=== PATIENT | male | born 2000 | race Caucasian/White ===

== ENCOUNTER 2025-10-13 09:35 | Emergency (ER) | payer OTHER, SELFPAY ==
[2025-10-13 09:39] VITALS: BP 124/84; PULSE 98; TEMP 36.5; O2SAT 95; BMI 31.7
--- NOTE | 2025-10-13 09:49 | XR_ITS ---
[facility] [place] [id number] Patient Name: DELLA CASTRO MRN: [id number] date: 2000 Sex: M Assigned Patient Location: ER Current Patient Location: ED.MAIN Accession/Order Number: [id number] Exam Date: 10/13/2025 10:10 Report Date: 10/13/2025 10:41 At the request of: JOSE JOHNSON DO Procedure: XR finger RT min 2V RIGHT FIFTH FINGER - 3 views COMPARISON: None CLINICAL DATA: Patient injured finger training and has pain. AP, lateral and oblique views of the fifth finger were obtained. No acute fracture or dislocation is identified. There is slight soft tissue swelling at the proximal finger extending up to the proximal interphalangeal joint. XR/XR finger RT min 2V IMPRESSION: NO ACUTE BONY INJURY. Impression dictated by: Elsa Bah M.D. 10/13/2025 10:41 AM Dictation Location: [place] [address] Electronically authenticated by: [id number] Y Date: 10/13/2025 10:41
--- OUTSIDE RECORDS SUMMARY | 2025-10-13 10:29 | XMS_ITS | Clinical Summary ---
Author Organization [facility] tem Address [id number] [address] [place] [address] Care Team Providers Care Pin Sticker Name Role Phone Ruiz Alberto MD Primary Care Provider [phone] Allergies No known active allergies Medications No known medications Encounters DateTypeDepartmentCare RwbcKbvuxoatpoj56/16/2025 4:13 AM EDT - 07/17/2025 5:00 AM EDTEmergency [facility] [address] [place] [id number] Yordan Coelho MD Injury of finger of right hand, initial encounter (Primary Dx) Discharge Disposition: Court/Law Lrougfardeb71/16/2025Travelfrom Last 3 Months Social History Tobacco UseTypesPacks/DayYears UsedDateSmoking Tobacco: Never AssessedHunger ScreeningAnswerDate RecordedWithin the past 12 months we worried whether our food would run out before we got money to buy more.Never True07/17/2025Food Insecurity - InabilityNot on file07/17/2025Sex and Gender InformationValueDate RecordedSex Assigned at BirthNot on fileLegal XagJtcf6501/24/2024 9:42 PM EST Gender IdentityNot on fileSexual OrientationNot on file Last Filed Vital Signs Vital SignReadingTime TakenCommentsBlood Pitaiamj272/9607/17/2025 4:19 AM EDT Yikox679007/17/2025 4:19 AM COTRmiildbssso97.9 ??C (98.5 ??F)07/17/2025 4:19 AM EDTRespiratory Oevi760907/17/2025 4:19 AM EDTOxygen Ghvsznchac74%07/17/2025 4:19 AM EDTInhaled Oxygen Concentration--Nwyitl375.1 kg (225 lb)07/17/2025 4:19 AM YLHGhpfva065.4 cm (6' 1 )07/17/2025 4:19 AM EDTBody Mass Index29.69007/17/2025 4:19 AM EDT Plan of Treatment Health MaintenanceDue DateLast DoneCommentsDepression Fnlbkvpit04/29/2011Tobacco Dkspnxeju71/29/2011dult BMI Follow Up Plan2017DTaP,Tdap and Td Vaccines (7 - Td or Tdap)/12/2011, 07/06/2004, 11/15/2000, Additional history existsInfluenza Lwfadqy7708/02/2025dult BMI Piandltkw33 Medical Devices Not on file Procedures Procedure NamePriorityDate/TimeAssociated DiagnosisCommentsXR FINGER RT 5TH DIGIT MIN 2 XJXUKXO5107/17/2025 4:36 AM EDT from Last 3 Months Results * X-ray finger right 5th digit minimum 2 views (07/17/2025 4:36 AM EDT) Anatomical RegionLateralityModalityUpper Extremities, MSK, FingersRight Computed RadiographySpecimen (Source)Anatomical Location / Laterality Collection Method / VolumeCollection TimeReceived Time07/17/2025 4:37 AM EDT Narrative 07/17/2025 4:49 AM EDT XR FINGER RT 5TH DIGIT MIN 2 VWS HISTORY: Fifth digit injury, fifth digit pain COMPARISON: None TECHNIQUE: Single view of the right hand and 3 views of the fifth digit obta d. ? FINDINGS: No acute fracture. Flexion deformity of the fifth PIP joint with surrounding soft tissue swelling. Incidental madelung deformity of the distal radius. IMPRESSION: ?? * ?? No convincing acute fracture. * ??Flexion deformity of the fifth PIP joint, which may indicate underlying soft tissue/tendinous injury. Approved by Resident Sheridan Mackenzie, DO ??on 07/17/2025 4:37 AM Seven Reaves MD have personally reviewed the image(s) and agree with and/or edited the report Finalized by Seven Cali MD on 07/17/2025 4:49 AM Procedure Note Seven Cali MD - 07/17/2025 XR FINGER RT 5TH DIGIT MIN 2 VWS HISTORY: Fifth digit injury, fifth digit pain COMPARISON: None TECHNIQUE: Single view of the right hand and 3 views of the fifth digitobta d. FINDINGS: No acute fracture. Flexion deformity of the fifth PIP joint withsurrounding soft tissue swelling. Incidental madelung deformity of thedistal radius. IMPRESSION: * No convincing acute fracture. * Flexion deformity of the fifth PIP joint, which may indicate underlyingsoft tissue/tendinous injury. Approved by Resident Sheridan Mackenzie DO on 07/17/2025 4:37 AM I, Seven Cali MD have personally reviewed the image(s) and agree withand/or edited the report Finalized by Seven Cali MD on 07/17/2025 4:49 AM Authorizing ProviderResult TypeResult StatusYordan [facility] ORDERABLESFinal Result from Last 3 Months Insurance Care Teams Team MemberRelationshipSpecialtyStart DateEnd Ruiz Alberto MD [address] [place] [phone] PCP - GeneralPediatric05/17/24
--- OUTSIDE RECORDS SUMMARY | 2025-10-13 10:29 | XMS_ITS | Clinical Summary ---
Author Organization [facility] Address [address] [place] [address] Care Team Providers Care Health Care Law Specialist Name Role Phone Ruiz Alberto MD Primary Care Provider [phone] Allergies No known active allergies Medications No known medications Active Problems No known active problems Family History RelationNameStatusCommentsFatherAliveMotherAlive Social History Tobacco UseTypesPacks/DayYears UsedDateSmoking Tobacco: NeverSmokeless Tobacco: Never Tobacco Cessation:Counseling Given: Not Answered Alcohol UseStandard Drinks/WeekCommentsNot Currently0 (1 standard drink = 0.6 oz pure alcohol)Sex and Gender InformationValueDate RecordedSex Assigned at Not on fileLegal BovHdwz1202/13/2023 6:44 PM EDTGender IdentityNot on fileSexual OrientationNot on file Last Filed Vital Signs Vital SignReadingTime TakenCommentsBlood Pressure--Pulse--Temperature-- Respiratory Rate--Oxygen Saturation--Inhaled Oxygen Concentration--Qyqifv289 kg (230 lb)05/19/2024 9:07 AM DIYEvtrvz932.4 cm (6' 1 )05/19/2024 9:07 AM EDTBody Mass Index30.34005/19/2024 9:07 AM EDT Plan of Treatment Not on file Insurance Care Teams Team MemberRelationshipSpecialtyStart DateEnd Date Ruiz Alberto MD [address] [place] [phone] PCP - GeneralPediatric05/18/24
--- OUTSIDE RECORDS SUMMARY | 2025-10-13 10:29 | XMS_ITS | Clinical Summary ---
Author Organization [facility] Address [address] [place] [address] Care Team Providers Care Labourers Name Role Phone Ruiz Alberto MD Primary Care Provider [phone] Allergies No known active allergies Medications No known medications Active Problems ProblemNoted DateDiagnosed DateInfection of right elbow06/08/2024 Encounters DateTypeDepartmentCare RqkvIdvpqsducfn04/28/2025 9:10 AM EDTOffice Visit [facility] [place] [phone] James Mayers MD Boutonniere deformity of finger, right (Primary Dx)08/11/2025Telephone [address] [place] [phone] Mary Lockwood MA 08/10/2025Telephone [address] [place] [phone] James Mayers MD from Last 3 Months Social History Tobacco UseTypesPacks/DayYears UsedDateSmoking Tobacco: NeverSmokeless Tobacco: Never Tobacco Cessation:Counseling Given: Not Answered PHQ-2AnswerDate RecordedPatient Health Questionnaire-2 Pvxnl397Sex and Gender InformationValueDate RecordedSex Assigned at KapqeQsiu47/08/2024 2:05 PM EDTLegal TsbDxdx9706/08/2024 11:15 AM EDTGender HrzpkdnhKdlv46/08/2024 2:05 PM EDT Sexual OrientationHeterosexual or Ofquuzyt23/08/2024 2:05 PM EDT Last Filed Vital Signs Vital SignReadingTime TakenCommentsBlood Szpzccel310/8806/08/2024 5:00 PM EDT Sdwdd4841/08/2024 5:00 PM DYMVralzifhrgk26.2 ??C (97.2 ??F)06/08/2024 4:13 PM EDTRespiratory Fblt827006/08/2024 5:00 PM EDTOxygen Kqrgcyoxpd72%06/08/2024 5:00 PM EDTInhaled Oxygen Concentration--Kieese826 kg (230 lb)09/28/2025 9:15 AM EDT Ukojjq066.4 cm (6' 1 )09/28/2025 9:15 AM EDTBody Mass Index30.341 9:15 AM EDT Plan of Treatment Health MaintenanceDue DateLast DoneCommentsHPV Vaccines (1 - Male 3-dose series) 2014dult Fvzmsfa40/12/2011COVID-19 Vaccine ( season) 501/01/2022, 07/15/2021Influenza Vaccine (#1)2025Depression Btbgyxqrn65Zoster Vaccines (1 of 2), 07/06/2004IPV FqexqtjfSxvdzwree65/15/2000, 1999, 1999, Additional history existsPneumococcal Vaccine: Pediatrics (0 to 5 Years) and At-Risk Patients (6 to 64 Years)Aged Out06/10/2001No longer eligible based on patient's age to complete this topicHIB RaxozsryVzmedzhly72/08/2003, 1999, 1999, Additional history existsVaricella XixuzzqaMbizkmuwa38/01/2012, 07/06/2004Meningococcal WdkvjsbWkzahxzmn30/10/2017Meningococcal B VaccineAged OutNo longer eligible based on patient's age to complete this topicRotavirus VaccinesAged OutNo longer eligible based on patient's age to complete this topic Additional Health Concerns InfectionOnset DateLast IndicatedTuberculosis Rule-Out Insurance Care Teams Team MemberRelationshipSpecialtyStart DateEnd Date Ruiz Alberto MD [address] [place] [address] [facility] - General06/08/24
--- NOTE | 2025-10-13 11:23 | ED.GENADUL1 ---
HPI HPI - General Adult General Chief complaint: Extremity Problem, Nontraumatic Stated complaint: FINGER INJURY - [facility] Time Seen by Provider: 10/13/25 09:48 Source: patient Mode of arrival: walk-in History of Present Illness HPI narrative: Patient is a previously healthy 25-year-old male presenting to the emergency department for evaluation of a right pinky finger injury. Patient states that 2 months ago he had a tendon injury in the same digit while on the job. He was seen by orthopedic surgery, and they decided to treat the injury conservatively with a finger splint. Patient just returned to work 1 week ago. He was doing physical activity while at work today, and reinjured the same finger. He states he felt a pop, and immediate pain/swelling in the finger. He denies any other injuries. He is otherwise asymptomatic. Related Data Home Medications ?Medication ?Instructions ?Recorded ?Confirmed No Known Home Medications 10/13/25 10/13/25 Allergies Allergy/AdvReac Type Severity Reaction Status Date / Time No Known Drug Allergies Allergy Verified 10/13/25 09:45 Opioid HPI Opioid Management Most Recent Opioid Data: Last Pain Scale 4 Today, 09:45 Review of Systems ROS Status of ROS 10 or more systems reviewed and unremarkable except as noted in history and below PFSH PFSH Social History Little interest or pleasure in doing things: not at all Feeling down, depressed, or hopeless: not at all Exam Narrative Exam Narrative: CONSTITUTIONAL: Well-appearing, answering questions and following commands appropriately SKIN: Was warm and dry. EYES: Sclerae white. EARS, NOSE, THROAT: Moist oral mucosa. RESPIRATORY: Nonlabored respirations CARDIOVASCULAR: Normal rate and regular rhythm. Cap refill less than 2 seconds in the right pinky finger. GASTROINTESTINAL: Abdomen is nondistended. MUSCULOSKELETAL: The left pinky finger is ulnar deviated, mildly edematous, and tender to the touch throughout. He is able to flex and extend with some limitation secondary to pain. NEUROLOGIC: Patient is awake and alert. Limited strength secondary to pain. Sensation intact to light touch throughout the right pinky finger. Constitutional Vital Signs, click to edit/add: Last Vital Signs Temp 97.7 F 10/13/25 09:39 Pulse 98 H 10/13/25 09:39 Resp 16 10/13/25 09:39 BP 124/84 10/13/25 09:39 Pulse Ox 95 10/13/25 09:39 O2 Del Method Room Air 10/13/25 09:39 Course Vital Signs Vital signs: Vital Signs Temperature 97.7 F 10/13/25 09:39 Pulse Rate 98 H 10/13/25 09:39 Respiratory Rate 16 10/13/25 09:39 Blood Pressure 124/84 10/13/25 09:39 Pulse Oximetry 95 10/13/25 09:39 Oxygen Delivery Method Room Air 10/13/25 09:39 Temperature 97.7 F 10/13/25 09:39 Pulse Rate 98 H 10/13/25 09:39 Respiratory Rate 16 10/13/25 09:39 Blood Pressure 124/84 10/13/25 09:39 Pulse Oximetry 95 10/13/25 09:39 Oxygen Delivery Method Room Air 10/13/25 09:39 Medical Decision Making MDM Narrative Medical decision making narrative: Patient is a 25-year-old male presenting to the emergency department for evaluation of right pinky injury. He had a tendon injury evaluated by orthopedic surgery 2 months ago and was treated conservatively. He reinjured today while working. The finger is neurovascularly intact. X-rays were obtained that demonstrate no acute fracture or dislocation. Patient is stable for discharge. He is currently texting his orthopedic surgeon, and is arranging follow-up appointment. He has a finger splint at home that he was previously using, instructed to use this until he can see his orthopedic surgeon. Patient understands and agrees to the plan. FINAL IMPRESSION: #Acute right pinky injury DISPOSITION: Discharged home CONDITION: Good Imaging Data right finger xray: Attestation: I personally reviewed and interpreted this imaging study as follows: Radiologist's impression: ITS Impressions Finger X-Ray 10/13/25 09:49 IMPRESSION: NO ACUTE BONY INJURY. Impression dictated by: Elsa Bah M.D. 10/13/2025 10:41 AM Dictation Location: [place] [address] Electronically authenticated by: [id number] Y Date: 10/13/2025 10:41 Discharge Plan Discharge Chief Complaint: Extremity Problem, Nontraumatic Clinical Impression: Injury of tendon of finger Patient Disposition: Home, Self-Care Time of Disposition Decision: 10:24 Condition: Good Mode of Transportation: Private Vehicle Prescriptions / Home Meds: No Action No Known Home Medications Print Language: Romansh Additional Instructions: Follow up with your orthopedic surgeon and maintain finger splint. Discharge Date/Time: 10/13/25 11:04
== END 2025-10-13 11:04 | disposition home or self-care (01) ==
PROVIDERS: Emergency Provider Student in an Organized Health Care Education/Training Program
DX: S69.81XA Other specified injuries of right wrist, hand and finger(s), initial encounter (principal); X58.XXXA Exposure to other specified factors, initial encounter
CPT/HCPCS: 73140; 99283